=== PATIENT | female | born 1995 | race Caucasian/White ===

== ENCOUNTER 2020-12-22 20:16 | Emergency (ER) | payer OTHER ==
[~2020-12-22] VITALS: Ht 157.5 cm; Wt 45.8 kg
[~2020-12-22 20:16] MED LIST: IBUPROFEN 800800 M1 PO; KEFLEX500 M1 PO; MACROBID 100 M100 M2 PO; MEDROLDOSEPACK PO; MOBIC7.5 MG PO; NORCO 5-325 TA1 EAC1 PO; NORCO 5-325 TA1 EAC2 PO; NORCO5 PO; ONDANSETRON HCL4 M2 PO; ONDANSETRON ODT4 MG PO; PROAIR HFA8.5 GM INH; TYLENOL WITH CO1 TA1 PO; ULTRAM 50MG TAB50 MG PO; ZANAFLEX4 MG PO
[2020-12-22 20:58] VITALS: BP 112/69
[2020-12-22] MEDS ORDERED: NORCO5 PO (21:28)
[2020-12-22] MEDS ORDERED: PENICILLIN VK500 MG PO (21:28)
== END 2020-12-22 22:11 | disposition home or self-care (01) ==
LOC: ER 20:16
DX: S02.5XXA Fracture of tooth (traumatic), initial encounter for closed fracture (principal); K04.7 Periapical abscess without sinus; Z79.899 Other long term (current) drug therapy; Z79.891 Long term (current) use of opiate analgesic; Z79.1 Long term (current) use of non-steroidal anti-inflammatories (NSAID); Z88.6 Allergy status to analgesic agent; Z91.013 Allergy to seafood; X58.XXXA Exposure to other specified factors, initial encounter; Y93.89 Activity, other specified; Y92.89 Other specified places as the place of occurrence of the external cause; Y99.8 Other external cause status